=== PATIENT | female | born 1950 | race Caucasian/White ===

== ENCOUNTER 2018-03-28 09:19 | Emergency (ER) | payer MEDICARE ==
[~2018-03-28] VITALS: Ht 172.7 cm; Wt 81.7 kg
[2018-03-28] MEDS ORDERED: NAPROSYN500 MG PO (10:53)
[2018-03-28] MEDS ORDERED: NORCO 5-325 TA1 EACH PO (10:53)
[2018-03-28] MEDS ORDERED: FLEXERIL PO (10:53)
[2018-03-28 11:09] VITALS: BP 163/70
== END 2018-03-28 11:10 | disposition home or self-care (01) ==
LOC: M.ERS 09:19
DX: M25.551 Pain in right hip (principal); M54.5 Low back pain; F17.210 Nicotine dependence, cigarettes, uncomplicated; Z90.49 Acquired absence of other specified parts of digestive tract; Z90.710 Acquired absence of both cervix and uterus

== ENCOUNTER → 2019-02-06 | Outpatient (CLI) | payer MEDICARE ==
[~2019-02-06] MED LIST: FLEXERIL PO; NAPROSYN500 MG PO; NORCO 5-325 TA1 EACH PO
== END ==
LOC: M.RAD 13:27
DX: M85.88 Other specified disorders of bone density and structure, other site (principal)

== ENCOUNTER → 2019-03-26 | Outpatient (CLI) | payer MEDICARE | LOC: M.RAD 10:35 | DX: Z12.31 Encounter for screening mammogram for malignant neoplasm of breast (principal) ==

== ENCOUNTER → 2020-05-07 | Outpatient (CLI) | payer MEDICARE | LOC: M.RAD 10:18 | PROVIDERS: ATTEND Internal Medicine | DX: Z12.31 Encounter for screening mammogram for malignant neoplasm of breast (principal) ==